=== PATIENT | male | born 1970 | race Caucasian/White ===

== ENCOUNTER 2016-07-12 14:13 | Emergency (ER) | payer OTHER ==
[2016-07-12 16:35] LABS: BASOPHILS 0 %; EOSINOPHILS 0 %; HEMOGLOBIN 14.3 g/dL (13.6-17.8); IMMATURE GRANULOCYTES 0.7 %; IMMATURE GRANULOCYTES ABSOLUTE 0.07 10/3/uL (0.0-0.11); LYMPHOCYTES 13.4 %; MEAN CORPUSCULAR HEMOGLOB 30.8 pg (26.0-34.0); MEAN CORPUSCULAR VOLUME 90.5 fL (80-100); MONOCYTES 4.6 %; MONOCYTES ABSOLUTE 0.48 10/3/uL (0.21-1.20); NEUTROPHILS 81.3 %; NEUTROPHILS ABSOLUTE 8.49 10/3/uL (2.02-8.40); PLATELET COUNT 225 10/3/uL (150-400); RBC DISTRIBUTION WIDTH 13.2 % (12.0-16.0); RED CELL COUNT 4.64 10/6/uL (4.7-6.1); WHITE BLOOD CELLS 10.4 10/3/uL (4.5-10.5)
[2016-07-12 16:36] LABS: MANUAL DIFF NO %
[2016-07-12 16:49] LABS: CALCIUM, SERUM 8.3 MG/DL (8.5-10.4); CHLORIDE, SERUM 112 MMOL/L (96-112); CO2 (CARBON DIOXIDE) 27 MMOL/L (24-34); CREATININE 1.29 MG/DL (0.70-1.30); GFR AFRICAN AMERICAN 77 ML/MIN (>=60); GFR NON AFRICAN AMERICAN 66 ML/MIN (>=60); GLUCOSE, SERUM 77 MG/DL (60-99); POTASSIUM, SERUM 4.2 MMOL/L (3.5-5.3); SALICYLATE 3.8 MG/DL (-)
[2016-07-12 16:50] LABS: ACETAMINOPHEN LEVEL (TYLENOL) < 2.0 MCG/ML (10.0-20.0); ALCOHOL < 10 MG/DL (0); BUN (BLOOD UREA NITROGEN) 14 MG/DL (6-23); SODIUM, SERUM 145 MMOL/L (135-148)
== END 2016-07-12 18:26 | disposition home or self-care (01) ==
LOC: ER 14:13
PROVIDERS: Nurse Practitioner
DX: S32.019A Unspecified fracture of first lumbar vertebra, initial encounter for closed fracture (principal); S32.029A Unspecified fracture of second lumbar vertebra, initial encounter for closed fracture; Z87.442 Personal history of urinary calculi; F17.200 Nicotine dependence, unspecified, uncomplicated; V29.40XA Motorcycle driver injured in collision with unspecified motor vehicles in traffic accident, initial encounter
CPT/HCPCS: 70450; 72100; 72125; 80048; 80305; 80307; 85025; 99285

== ENCOUNTER 2016-08-06 13:14 | Emergency (ER) | payer OTHER ==
[2016-08-06 12:25] LABS: BASOPHILS 0 %; EOSINOPHILS 0 %; HEMATOCRIT 40.2 % (40.0-51.0); HEMOGLOBIN 13.9 g/dL (13.6-17.8); IMMATURE GRANULOCYTES 0.2 %; IMMATURE GRANULOCYTES ABSOLUTE 0.02 10/3/uL (0.0-0.11); LYMPHOCYTES 14.4 %; LYMPHOCYTES ABSOLUTE 1.32 10/3/uL (0.67-4.30); MEAN CORPUS HGB CONC 34.6 g/dL (32.0-36.0); MEAN CORPUSCULAR HEMOGLOB 30.7 pg (26.0-34.0); MEAN CORPUSCULAR VOLUME 88.7 fL (80-100); MONOCYTES 6.2 %; MONOCYTES ABSOLUTE 0.57 10/3/uL (0.21-1.20); NEUTROPHILS 79.2 %; NEUTROPHILS ABSOLUTE 7.27 10/3/uL (2.02-8.40); PLATELET COUNT 277 10/3/uL (150-400); RBC DISTRIBUTION WIDTH 12.8 % (12.0-16.0); RED CELL COUNT 4.53 10/6/uL (4.7-6.1); WHITE BLOOD CELLS 9.2 10/3/uL (4.5-10.5)
[2016-08-06 12:26] LABS: MANUAL DIFF NO %
[2016-08-06 12:33] LABS: INTERNATIONAL NORMAL RATI 1.1 UNITS (-); PARTIAL THROMBO TIME 28.1 SEC (22.5-37.2); PROTIME (NOT ORD) 13.9 SEC (12.0-14.5)
[2016-08-06 12:43] LABS: BUN (BLOOD UREA NITROGEN) 16 MG/DL (6-23); CALCIUM, SERUM 9.2 MG/DL (8.5-10.4); CHEST PAIN PROFILE TAT 0 Hrs 22 Mins; CHLORIDE, SERUM 113 MMOL/L (96-112); CO2 (CARBON DIOXIDE) 24 MMOL/L (24-34); CREATININE 1.26 MG/DL (0.70-1.30); DIRECT BILIRUBIN 0.1 MG/DL (0.0-0.4); GFR AFRICAN AMERICAN 79 ML/MIN (>=60); GFR NON AFRICAN AMERICAN 68 ML/MIN (>=60); INDIRECT BILIRUBIN(NOT ORDER) 0.2 MG/DL (0.1-0.9); POTASSIUM, SERUM 3.8 MMOL/L (3.5-5.3); SGOT(AST) 21 U/L (5-40); SGPT(ALT) 23 U/L (5-65); SODIUM, SERUM 143 MMOL/L (135-148); TOTAL BILIRUBIN 0.3 MG/DL (0-1.2); TOTAL PROTEIN 6.8 G/DL (6.0-8.5); TROPONIN I <0.02 NG/ML (<0.05)
[2016-08-06 12:44] LABS: ALKALINE PHOSPHATASE 142 U/L (45-117); GLUCOSE, SERUM 122 MG/DL (60-99)
== END 2016-08-06 17:33 | disposition home or self-care (01) ==
LOC: ER 13:14
PROVIDERS: Emergency Medicine
DX: R07.9 Chest pain, unspecified (principal); J44.9 Chronic obstructive pulmonary disease, unspecified; I10 Essential (primary) hypertension; F17.200 Nicotine dependence, unspecified, uncomplicated
CPT/HCPCS: 71010; 71275; 80048; 80076; 83690; 83735; 84484; 85025; 85610; 85730; 93005; 96374; 99285; A9270-GY; J1170; J2405; Q9967

== ENCOUNTER 2016-08-12 04:09 | Inpatient (IN) | payer OTHER ==
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
--- NOTE | ~2016-08-12 | OP ---
Record Of Operation [facility] [address] [place]. [address] NAME: JOSE CARLOS DIAZ : 68 STATUS : ADM IN PAT#: [id number] AGE: 45 ADM/REG DATE : 08/12/16 MR#: [id number] REPORT SERV DATE: 08/12/16 DICTATED BY: BERNY BRANDON DATE: 08/12/16 REPORT STATUS : Draft TRANSCRIBED BY: MODL DATE: 08/12/16 DATE OF PROCEDURE: 08/12/2016 PREOPERATIVE DIAGNOSIS: Acute cholecystitis. POSTOPERATIVE DIAGNOSIS: Acute cholecystitis. PROCEDURE: Laparoscopic cholecystectomy. ATTENDING SURGEON: Kala Brandon M.D. RESIDENT: Lavern Herrera M.D. ANESTHESIA: Genera endotracheal anesthesia. SPECIMEN: Gallbladder. COMPLICATIONS: None. BLOOD LOSS: 75 mL. IV FLUIDS: 1500 mL of crystalloid. COMPLICATIONS: None. INDICATION: Mr. Diaz is a 45-year-old male, who presented to the [facility] Emergency Room. On workup, he was found to have physical exam, laboratory findings, and imaging consistent with acute cholecystitis. He was offered laparoscopic cholecystectomy. Risks and benefits were discussed with the patient as well as alternatives. Questions were sought and answered. The patient wished to proceed. DESCRIPTION OF THE OPERATION: The patient was brought to the operating room, placed supine on the operating table. After satisfactory induction of general endotracheal anesthesia, the patient's abdomen was prepped and draped in the usual sterile fashion. A time-out was performed with all operating staff present. The patient received appropriate preoperative antibiotics. We began by palpating the umbilicus. We can tell if there was a hernia at the base of the umbilicus. We then elevated the umbilicus with skin hooks and made an incision directly through this, dissected down with a Anita dissector, and we were able to enter the abdomen with a Anita and then a surgeon's digit. We then inserted a 12 mm trocar into the intraabdominal cavity and the fascia and a Niño. We could immediately tell that the gallbladder was inflamed and distended. There were some omental adhesions and these were taken down bluntly without much trouble, however, due to the insensate nature of the gallbladder, we were unable to grasp it. Therefore, an aspirating needle was placed into the abdomen and into the gallbladder, and somewhere between 50 and 60 mL of purulent material was aspirated from the gallbladder. We were then able to grasp the gallbladder at the dome and retracted up and over the liver. The gallbladder is likewise was grasped, it Record Of Operation [facility] [address] [place]. [address] NAME: JOSE CARLOS DIAZ : 68 STATUS : ADM IN PAT#: [id number] AGE: 45 ADM/REG DATE : 08/12/16 MR#: [id number] REPORT SERV DATE: 08/12/16 DICTATED BY: BERNY BRANDON DATE: 08/12/16 REPORT STATUS : Draft TRANSCRIBED BY: MODL DATE: 08/12/16 was felt to be the most likely place of the infundibulum and retracted inferior laterally. With some difficulty, we were ultimately able to dissect out the cystic duct and cystic artery. The cystic duct was clipped twice proximally, once distally, and cystic artery likewise once proximally and once distally, and then divided with scissors. This was done only after we had achieved a critical view of safety. We then took the gallbladder off the liver bed using hook electrocautery. Bleeding in the liver bed was easily cauterized with the Bovie electrocautery, and then we also placed Clara within the gallbladder fossa for extra hemostasis. We then removed the gallbladder through the infraumbilical port site. Because of the size, we were required to extend our fascial incision inferiorly and superiorly somewhat. The three subcostal trocars were taken out under direct visualization with the laparoscope and then finally, the infraumbilical trocar was removed and the abdomen was allowed to deflate entirely. We then reapproximated the fascial edges of the umbilical incision with a running 0 Vicryl on a UR6. All incisions were irrigated and then skin edges were reapproximated using 4-0 Monocryl suture in a simple fashion. Sterile dressings were placed, and the patient was able to be extubated in the operating room, transferred to PACU in stable condition. Dr. Brandon, the attending, was present and scrubbed for the entirety of the case. There were no obvious complications. DICTATED BY: Lavern Herrera MD SE/BOUBACAR Kala Brandon M.D. / [id number] CC: Radha Marrero PA-C
[2016-08-12 03:47] LABS: BASOPHILS 0 %; EOSINOPHILS 0.1 %; EOSINOPHILS ABSOLUTE 0.01 10/3/uL (0.0-0.53); ER CBC TAT 0 Hrs 05 Mins; HEMATOCRIT 39.5 % (40.0-51.0); HEMOGLOBIN 14.1 g/dL (13.6-17.8); IMMATURE GRANULOCYTES 0.4 %; IMMATURE GRANULOCYTES ABSOLUTE 0.04 10/3/uL (0.0-0.11); LYMPHOCYTES 15.6 %; LYMPHOCYTES ABSOLUTE 1.74 10/3/uL (0.67-4.30); MEAN CORPUS HGB CONC 35.7 g/dL (32.0-36.0); MEAN CORPUSCULAR HEMOGLOB 31.5 pg (26.0-34.0); MEAN CORPUSCULAR VOLUME 88.2 fL (80-100); MEAN PLATELET VOLUME 9.5 fL (9.2-13.0); MONOCYTES 7.5 %; MONOCYTES ABSOLUTE 0.84 10/3/uL (0.21-1.20); NEUTROPHILS 76.4 %; NEUTROPHILS ABSOLUTE 8.53 10/3/uL (2.02-8.40); PLATELET COUNT 340 10/3/uL (150-400); RBC DISTRIBUTION WIDTH 12.3 % (12.0-16.0); RED CELL COUNT 4.48 10/6/uL (4.7-6.1); WHITE BLOOD CELLS 11.2 10/3/uL (4.5-10.5)
[2016-08-12 03:49] LABS: MANUAL DIFF NO %
[2016-08-12 04:06] LABS: ALBUMIN 3.8 G/DL (3.5-5.0); BUN (BLOOD UREA NITROGEN) 18 MG/DL (6-23); CALCIUM, SERUM 9.7 MG/DL (8.5-10.4); CO2 (CARBON DIOXIDE) 21 MMOL/L (24-34); CREATININE 1.21 MG/DL (0.70-1.30); GFR AFRICAN AMERICAN 83 ML/MIN (>=60); GFR NON AFRICAN AMERICAN 71 ML/MIN (>=60); GLUCOSE, SERUM 112 MG/DL (60-99); POTASSIUM, SERUM 3.1 MMOL/L (3.5-5.3); SALICYLATE 4.1 MG/DL (-); SGOT(AST) 34 U/L (5-40); SGPT(ALT) 57 U/L (5-65); SODIUM, SERUM 139 MMOL/L (135-148); TOTAL BILIRUBIN 0.6 MG/DL (0-1.2); TROPONIN I <0.02 NG/ML (<0.05)
[2016-08-12 04:07] LABS: LACTATE 2.2 MMOL/L (0.3-2.4)
[2016-08-12 04:08] LABS: A/G RATIO 0.8 (0.7-1.9); ACETAMINOPHEN LEVEL (TYLENOL) < 2.0 MCG/ML (10.0-20.0); ALCOHOL < 10 MG/DL (0); ALKALINE PHOSPHATASE 121 U/L (45-117); CHLORIDE, SERUM 101 MMOL/L (96-112); GLOBULIN 4.7 G/DL (2.5-4.1); TOTAL PROTEIN 8.5 G/DL (6.0-8.5)
[2016-08-12 04:36] LABS: PROCALCITONIN 0.45 ng/mL (<0.5)
[2016-08-12 06:28] LABS: ASCORBIC ACID (UR NOT ORDER) NEG (NEG); BILIRUBIN, URINE NEGATIVE (NEG); ER URINALYSIS TAT 0 Hrs 00 Mins; KETONE, URINE 20 MG/DL (NEG); LEUKOCYTE ESTERASE(NOT OR NEG (NEG); NITRITE (URINE) NEG (NEG); WBC (NOT ORDERED) (RFLEX) 1 (0-5)
[2016-08-12 06:34] LABS: AMPHETAMINES (NOT ORD) NEG (NEG); BARBITURATES (NOT ORDERED NEG (NEG); BENZODIAZEPINES (NOT ORD) NEG (NEG); CANNABINOIDS (THC) NEG (NEG); COCAINE (NOT ORDERED) NEG (NEG); OPIATES POS (NEG); PHENCYCLIDINE(PCP) NEG (NEG); TRICYCLICS NEG (NEG)
[2016-08-12] MEDS ORDERED: NEUR800 PO (13:05)
[2016-08-12] MEDS ORDERED: REMERON45 MG PO (13:06)
[2016-08-12] MEDS ORDERED: LIPITOR20 PO (13:06)
[2016-08-12] MEDS ORDERED: X5 PO (13:06)
[2016-08-12] MEDS ORDERED: PRIN10 PO (13:07)
[2016-08-12] MEDS ORDERED: TOPAMAX50 MG PO (13:07)
[2016-08-12] MEDS ORDERED: LOFIB160 PO (13:07)
[2016-08-12] MEDS ORDERED: EFFEX75 PO (13:08)
[2016-08-13] MEDS ORDERED: PCET PO (10:26)
== END 2016-08-13 13:30 | disposition home or self-care (01) | DRG 419 ==
LOC: ER 04:09 → 4EA 04:49
PROVIDERS: Colon & Rectal Surgery; Hospitalist
PROC: 0FT44ZZ Resection of Gallbladder, Percutaneous Endoscopic Approach (ICD-10-PCS; principal; 2016-08-12 08:45)
DX: K81.0 Acute cholecystitis (principal)
CPT/HCPCS: 74176; 80053; 80305; 80307; 81001; 83605; 83690; 84145; 84484; 85025; 87040; 88304; 93005; 96365; 96375; 99285; A9270-GY; J1170; J2175; J2250; J2405; J2543; J3010; Q9967